=== PATIENT | female | born 1990 | race Caucasian/White ===

== ENCOUNTER 2016-09-17 16:09 | Emergency (ER) | payer OTHER ==
[~2016-09-17 16:09] MED LIST: ACUTANE PO; AMOXICILLIN500 M1 PO; BENTYL20 M1 PO; BIRTH CONTROL; DELTASONE20 MG PO; IRON1 TAB; NO MEDICATIONS; ORTHO TRI-7 DAYS X PO; PREDNISONE PO; PREDNISONE10 MG/DOSE PO; PRENATAL1 TA1; PRILOSEC20 MG PO; ROBAXIN500 MG PO; TYLENOL #3 PO; VISTARIL; VOLTAREN75 MG PO; ZOFRAN PO
== END 2016-09-17 16:21 | disposition home or self-care (01) ==
LOC: SED 16:09
DX: O60.03 Preterm labor without delivery, third trimester (principal); Z88.5 Allergy status to narcotic agent; Z88.1 Allergy status to other antibiotic agents
CPT/HCPCS: 99285